=== PATIENT | female | born 1975 | race Caucasian/White ===

== ENCOUNTER → 2016-09-24 | Outpatient (CLI) | payer BC, OTHER | END | disposition home or self-care (01) | LOC: LABWHC1 14:09 | PROVIDERS: ATTEND Internal Medicine | DX: R76.0 Raised antibody titer (principal) | CPT/HCPCS: 36415; 86225 ==

== ENCOUNTER → 2017-02-21 | Outpatient (CLI) | payer BC ==
[2017-02-22 07:51] LABS: ANA w/Reflex to Titer POSITIVE (NEGATIVE)
== END | disposition home or self-care (01) ==
LOC: LABWHC1 08:39
PROVIDERS: ATTEND Psychiatry & Neurology Pain Medicine
DX: M25.50 Pain in unspecified joint (principal)
CPT/HCPCS: 36415; 86038; 86039; 86235

== ENCOUNTER → 2017-03-14 | Outpatient (CLI) | payer BC ==
[2017-03-14 14:47] LABS: % Iron Saturation 46.3 % (20-50)
--- NOTE | 2017-03-14 23:25 | MR ---
EXAMINATION TYPE: MR brain wo/w con DATE OF EXAM: 03/14/2017 COMPARISON: NONE HISTORY: Dizzy, Lightheaded, R/O MS TECHNIQUE: Multiplanar, multisequence images of the brain and brainstem is performed without and with IV contras t, utilizing 20 mL intravenous MultiHance . FINDINGS: Ventricles and sulci appear normal. There is no mass effect nor midline shift. There is no sign of intracranial hemorrhage. Bray and white matter structures have fairly normal signal pattern. There is no evidence of cerebral edema. The brainstem is intact. Sella turcica is within normal limit s. Corpus callosum is within normal limits. There is a single 4 mm focus of increased signal in the l eft centrum semiovale on the FLAIR images. There are small linear areas of increased signal around th e frontal horns of lateral ventricles and the occipital horn left lateral ventricle. I see no patholo gic enhancement. IMPRESSION: There is a single small focus of increased signal in the left centrum semiovale on the T2 images there is nonspecific. There is mild linear increased signal around the occipital horn left la teral ventricle on the T2 images. There is very minimal subependymal wall white matter increased sign al around the frontal horns of the lateral ventricles. I do not see corpus callosum involvement to block ggest typical demyelinating disease. The possibility of early demyelinating disease cannot be entirel y excluded.
[2017-03-15 14:23] LABS: Immunoglobulin G 846 mg/dL (700 - 1600)
== END ==
LOC: RADMRIMAIN 13:19
PROVIDERS: ATTEND Psychiatry & Neurology Pain Medicine
DX: R90.89 Other abnormal findings on diagnostic imaging of central nervous system (principal); D64.9 Anemia, unspecified; R51 Headache
CPT/HCPCS: 82040; 82042; 82784; 83916; 82728; 83540; 83550; 83873; 84466; 70553; 36415; A9577

== ENCOUNTER 2017-03-18 19:31 | Emergency (ER) | payer BC ==
[2017-03-18] MEDS ORDERED: diphenhydrAMINE 50 MG/ML 1 ML VIAL IVP STA (19:57)
[2017-03-18] MEDS ORDERED: SODIUM CHLORIDE 0.9% 1,000 ML IV ONE (19:57)
[2017-03-18] MEDS ORDERED: METOCLOPRAMIDE 5 MG/ML 2 ML VIAL IVP STA (19:57)
--- NOTE | 2017-03-18 20:02 | ED ---
Headache HPI - General Chief Complaint: Headache Stated Complaint: Headache x 4 Time Seen by Provider: 03/18/17 19:48 Mode of arrival: ambulatory Limitations: no limitations - History of Present Illness Initial Comments: This is a 42-year-old female who presents here department for headache for the last 4 days. She states that she had an LP done 5 days ago. She developed a headache the day after. She states that the headache is worth with sitting up and standing and better with laying down. She states that she is able to sleep at night. She has been trying [id number] medications and drinking a lot of Coke for the caffeine. She's also been drinking a lot of water. She called Dr. Luo's office who encouraged her to continue with these therapies however if it worsens she was told to come emergency department. She denies any double vision. She does admit to some nausea but no vomiting. No focal weakness or numbness. No other complaints. - Related Data Home Medications Medication Instructions Recorded Confirmed Omeprazole 40 mg PO QAM 06/22/15 03/18/17 Meclizine [Antivert] 25 mg PO DAILY PRN 03/18/17 03/18/17 rOPINIRole HCL [Requip] 0.25 mg PO HS 03/18/17 03/18/17 Previous Rx's Medication Instructions Recorded HYDROcodone/APAP 5-325MG [[facility] 1 tab PO Q6HR PRN #15 tab 03/18/17 5-325] Metoclopramide HCl [Reglan] 10 mg PO Q8HR PRN #15 tablet 03/18/17 Allergies Allergy/AdvReac Type Severity Reaction Status Date / Time codeine Allergy Unknown Verified 03/18/17 20:11 Childhood Review of Systems ROS Statement: Those systems with pertinent positive or pertinent negative responses have been documented in the HPI. ROS Other: All systems not noted in ROS Statement are negative. Past Medical History Past Medical History: No Reported History History of Any Multi-Drug Resistant Organisms: MRSA Date of last positivie culture/infection: 07/17/14 MDRO Source:: groin skin Past Surgical History: Adenoidectomy, Appendectomy, Tonsillectomy, Tubal Ligation Past Psychological History: No Psychological Hx Reported Smoking Status: Never smoker Past Alcohol Use History: None Reported Past Drug Use History: None Reported General Exam - General Exam Comments Initial Comments: Constitutional: Awake alert Appears comfortable Head: Normocephalic atraumatic Eyes: no conjunctival injection No scleral icterus EOMI, pupils are 3 mm and reactive bilaterally Neck: No JVD Supple Heart: Regular rate rhythm normal S1-S2 no murmurs Lungs: Clear to auscultation bilaterally No wheezing No rales Abdomen: Soft nondistended nontender Extremities: Non edematous DP pulses intact Radial pulses intact Neuro: A&Ox3, cranial nerves II through XII are grossly intact, 5 out of 5 strength in upper and lower extremities bilaterally, sensation intact to light touch in all extremities, no dysmetria in upper and lower extremities No focal neurologic deficits Psych: Appropriate mood and affect Limitations: no limitations Course Vital Signs 03/18/17 03/18/17 19:43 21:27 Temperature 98.4 F 98.6 F Pulse Rate 83 88 Respiratory 20 18 Rate Blood Pressure 151/86 161/78 O2 Sat by Pulse 97 96 Oximetry Medical Decision Making - Medical Decision Making This is a 42-year-old female presents emergency department for headache post- LP. Her history and physical are consistent with spinal headache. She was given multiple medications with much improvement in her symptoms. I gave the patient the option for blood patch here in the emergency department however she stated that she would rather go home with pain medication and nausea medication and see if it resolved on its own. I told her that if she does not have complete resolution in the next couple of days she should return emergency Department. She states that she understands. All questions were answered. - Lab Data Result diagrams: 03/18/17 20:30 03/18/17 20:30 Lab Results 03/18/17 03/18/17 03/18/17 Range/Units 20:30 20:30 20:30 WBC 11.4 H (3.8-10.6) k/uL RBC 4.61 (3.80-5.40) m/uL Hgb 14.7 (11.4-16.0) gm/dL Hct 41.8 (34.0-46.0) % MCV 90.6 (80.0-100.0) fL MCH 31.8 (25.0-35.0) pg MCHC 35.1 (31.0-37.0) g/dL RDW 12.8 (11.5-15.5) % Plt Count 224 (150-450) k/uL Neutrophils % 60 % Lymphocytes % 32 % Monocytes % 5 % Eosinophils % 1 % Basophils % 1 % Neutrophils # 6.8 (1.3-7.7) k/uL Lymphocytes # 3.7 (1.0-4.8) k/uL Monocytes # 0.6 (0-1.0) k/uL Eosinophils # 0.1 (0-0.7) k/uL Basophils # 0.1 (0-0.2) k/uL PT 9.6 (9.0-12.0) sec INR 0.9 (<1.1) APTT 23.0 (22.0-30.0) sec Sodium 139 (137-145) mmol/L Potassium 3.9 (3.5-5.1) mmol/L Chloride 106 (98-107) mmol/L Carbon Dioxide 22 (22-30) mmol/L Anion Gap 11 mmol/L BUN 10 (7-17) mg/dL Creatinine 0.80 (0.52-1.04) mg/dL Est GFR (MDRD) Af Amer >60 (>60 ml/min/1.73 sqM) Est GFR (MDRD) Non-Af >60 (>60 ml/min/1.73 sqM) Glucose 112 H (74-99) mg/dL Calcium 9.3 (8.4-10.2) mg/dL Disposition Clinical Impression: Spinal headache Disposition: HOME SELF-CARE Condition: Stable Instructions: Lumbar Puncture (ED), Acute Headache (ED) Prescriptions: HYDROcodone/APAP 5-325MG [[facility] 5-325] 1 tab PO Q6HR PRN #15 tab PRN Reason: Pain Metoclopramide HCl [Reglan] 10 mg PO Q8HR PRN #15 tablet PRN Reason: Nausea Referrals: Elma Azul MD [Primary Care Provider] - 1-2 days
[2017-03-18 20:48] LABS: Basophils # (A) 0.1 k/uL (0-0.2); Basophils % (A) 1 %; CH 32.3; CHCM 35.9; Eosinophils # (A) 0.1 k/uL (0-0.7); Eosinophils % (A) 1 %; HCT 41.8 % (34.0-46.0); HDW 2.41; HGB 14.7 gm/dL (11.4-16.0); Luc # (Auto) 0.17; Luc % (Auto) 2; Lymphocytes # (A) 3.7 k/uL (1.0-4.8); Lymphocytes % (A) 32 %; MCH 31.8 pg (25.0-35.0); MCHC 35.1 g/dL (31.0-37.0); MCV 90.6 fL (80.0-100.0); Mean Platelet Volume 7.2; Monocytes # (A) 0.6 k/uL (0-1.0); Monocytes % (A) 5 %; Neutrophils # (A) 6.8 k/uL (1.3-7.7); Neutrophils % (A) 60 %; RBC 4.61 m/uL (3.80-5.40); RDW 12.8 % (11.5-15.5); WBC 11.4 k/uL (3.8-10.6); WBC (Perox) 10.64
[2017-03-18 20:57] LABS: Anion Gap 11 mmol/L; Blood Urea Nitrogen 10 mg/dL (7-17); Calcium 9.3 mg/dL (8.4-10.2); Carbon Dioxide 22 mmol/L (22-30); Chloride 106 mmol/L (98-107); Glucose 112 mg/dL (74-99); Non-African American GFR(MDRD) >60 (>60 ml/min/1.73 sqM); Potassium 3.9 mmol/L (3.5-5.1); Sodium 139 mmol/L (137-145)
[2017-03-18 20:59] LABS: INR 0.9 (<1.1); Prothrombin Time 9.6 sec (9.0-12.0)
[2017-03-18] MEDS ORDERED: MORPHINE SULFATE 4 MG/ML SYRINGE IVP STA (21:03)
[2017-03-18] MEDS ORDERED: SUMAtriptan SUCCINATE 6 MG/0.5 ML VIAL SQ STA (21:03)
[2017-03-18 21:28] VITALS: RESP 18
[2017-03-18 21:54] VITALS: BP 158/65; PULSE 72; TEMP 98.3
== END 2017-03-18 21:40 | disposition home or self-care (01) ==
LOC: EC 19:31
DX: G97.1 Other reaction to spinal and lumbar puncture (principal); R11.0 Nausea; Z88.5 Allergy status to narcotic agent; Z79.899 Other long term (current) drug therapy
CPT/HCPCS: 99284; 96374; 96375 ×2; 96361; 96372; 36415; 80048; 85025; 85610; 85730; J3030; J2270; J1200; J2765

== ENCOUNTER 2017-03-19 17:43 | Emergency (ER) | payer BC ==
[2017-03-19] MEDS ORDERED: SODIUM CHLORIDE 0.9% 1,000 ML IV ONE (18:00)
[2017-03-19] MEDS ORDERED: METOCLOPRAMIDE 5 MG/ML 2 ML VIAL IVP STA (18:03)
[2017-03-19] MEDS ORDERED: diphenhydrAMINE 50 MG/ML 1 ML VIAL IVP STA (18:03)
[2017-03-19] MEDS ORDERED: MORPHINE SULFATE 4 MG/ML SYRINGE IVP STA ×2 (18:04→19:41)
--- NOTE | 2017-03-19 18:09 | ED ---
Headache HPI - General Chief Complaint: Headache Stated Complaint: Headache Time Seen by Provider: 03/19/17 17:47 Source: RN notes reviewed Mode of arrival: ambulatory Limitations: no limitations - History of Present Illness Initial Comments: Patient is a 42-year-old female presents to the emergency room for evaluation of headache. Patient states she had a spinal tap done by Dr. Luo on Saturday. Patient states she began having a headache. Patient states headache is worse whenever she sitting up and improves while laying down. Patient states she has a 5 out of 10 headache laying down and a 10 out of 10 headache while sitting up. Patient states she was here last night for the same issue. Patient states she was given medications and offered a blood patch. Patient states she did not want a blood patch at that time and felt better after medications and was discharged home. Patient states that the headache has returned. Patient states she is nauseous but denies vomiting. Patient denies fevers or chills. Patient denies paresthesias, weakness or unilateral weakness. Patient denies any new, changing or worsening symptoms since her visit here yesterday. - Related Data Home Medications Medication Instructions Recorded Confirmed Omeprazole 40 mg PO QAM 06/22/15 03/19/17 Meclizine [Antivert] 25 mg PO DAILY PRN 03/18/17 03/19/17 rOPINIRole HCL [Requip] 0.25 mg PO HS 03/18/17 03/19/17 Previous Rx's Medication Instructions Recorded HYDROcodone/APAP 5-325MG [[place] 1 tab PO Q6HR PRN #15 tab 03/18/17 5-325] Metoclopramide HCl [Reglan] 10 mg PO Q8HR PRN #15 tablet 03/18/17 Allergies Allergy/AdvReac Type Severity Reaction Status Date / Time codeine Allergy Unknown Verified 03/19/17 17:46 Childhood Review of Systems ROS Statement: Those systems with pertinent positive or pertinent negative responses have been documented in the HPI. ROS Other: All systems not noted in ROS Statement are negative. Past Medical History Past Medical History: No Reported History History of Any Multi-Drug Resistant Organisms: MRSA Date of last positivie culture/infection: 07/17/14 MDRO Source:: groin skin Past Surgical History: Adenoidectomy, Appendectomy, Tonsillectomy, Tubal Ligation Past Psychological History: No Psychological Hx Reported Smoking Status: Never smoker Past Alcohol Use History: None Reported Past Drug Use History: None Reported General Exam - General Exam Comments Initial Comments: Laying in exam room, no distress. Limitations: no limitations General appearance: alert, in no apparent distress Head exam: Present: atraumatic, normocephalic, normal inspection Eye exam: Present: normal appearance, PERRL, EOMI Pupils: Present: normal accommodation ENT exam: Present: normal exam Neck exam: Present: normal inspection Respiratory exam: Present: normal lung sounds bilaterally. Absent: respiratory distress Cardiovascular Exam: Present: regular rate, normal rhythm, normal heart sounds Extremities exam: Present: normal inspection Back exam: Present: normal inspection Neurological exam: Present: alert, oriented X3, CN II-XII intact, normal gait Expanded Speech: Present: fluid speech Cranial nerves: EOM's Intact: Normal, Facial Sensation: Normal Sensory exam: Upper Extremity Light Touch: Normal, Lower Extremity Light Touch: Normal Motor strength exam: RUE: 5, LUE: 5, RLE: 5, LLE: 5 Eye Response: (4) open spontaneously Motor Response: (6) obeys commands Verbal Response: (5) oriented Psychiatric exam: Present: normal affect, normal mood Skin exam: Present: warm, dry, intact, normal color. Absent: rash Course Vital Signs 03/19/17 03/19/17 03/19/17 17:44 20:24 21:17 Temperature 97.6 F Pulse Rate 94 87 67 Respiratory 16 18 18 Rate Blood Pressure 172/94 156/94 138/86 O2 Sat by Pulse 96 98 98 Oximetry 03/19/17 03/19/17 03/19/17 22:21 22:37 22:50 Temperature 98.7 F Pulse Rate 84 Respiratory 18 Rate Blood Pressure 166/99 136/70 O2 Sat by Pulse 96 Oximetry Medical Decision Making - Medical Decision Making Patient is a 42-year-old female presents to the emergency room for evaluation of post lumbar puncture headache. Patient given multiple medications with little relief of symptoms. Patient was then given sodium benzoate with caffeine and had significant improvement. Patient would like to be discharged home. Advised patient to follow-up with Dr. Luo. Patient states she understands everything that was discussed with her. Return parameters discussed. Case discussed with Dr. Garces. Disposition Clinical Impression: Spinal headache Disposition: HOME SELF-CARE Condition: Good Instructions: Lumbar Puncture (ED), Acute Headache (ED) Additional Instructions: Drink plenty of water and caffeine. Please follow up with primary care provider or neurologist in 24-48 hours. If any new symptom arises or symptoms worsen, return to ER as soon as possible. Referrals: Elma Azul MD [Primary Care Provider] - 1-2 days Time of Disposition: 22:28
[2017-03-19] MEDS ORDERED: KETOROLAC 30 MG/ML 1 ML VIAL IVP STA (19:40)
[2017-03-19] MEDS ORDERED: PROCHLORPERAZINE 5 MG TAB PO STA (19:41)
[2017-03-19] MEDS ORDERED: DIAZEPAM 5 MG/ML 2 ML SYRINGE IVP STA (19:41)
[2017-03-19] MEDS ORDERED: SODIUM CHLORIDE 0.9% 500 ML IV ONE (19:42)
[2017-03-19 20:25] VITALS: RESP 18
[2017-03-19] MEDS ORDERED: CAFFEINE-SODIUM BENZOATE 500 MG in SODIUM CHLORIDE 0.9% 1,000 ML IV ONE (21:30)
[2017-03-19 22:24] VITALS: PULSE 84
[2017-03-19 22:37] VITALS: BP 136/70
[2017-03-19 22:51] VITALS: TEMP 98.7
== END 2017-03-19 22:50 | disposition home or self-care (01) ==
LOC: EC 17:43
DX: G97.1 Other reaction to spinal and lumbar puncture (principal); Z79.899 Other long term (current) drug therapy; Z88.5 Allergy status to narcotic agent
CPT/HCPCS: 99283; 96365; 96375 ×5; 96376; 96361 ×2; S0183; J2270; J1200; J2765; J3360; J1885

== ENCOUNTER 2017-10-14 09:42 | Emergency (ER) | payer BC, OTHER ==
--- NOTE | 2017-10-14 10:22 | ED ---
Fall HPI - General Chief Complaint: Fall Stated Complaint: fall, head injury Time Seen by Provider: 10/14/17 09:56 Source: patient Mode of arrival: wheelchair Limitations: no limitations - History of Present Illness Initial Comments: This a 42-year-old female presents emergency Department chief complaint of slip and fall. She states she was going to work diarrhea vehicle at work states that she went to get something out of the vehicle and slipped backward. Patient states that she did strike her head but she did not lose consciousness. She denies headache or dizziness at this time. She's had no nausea or vomiting. Patient primarily complains of left low back pain, right elbow pain. She does have an abrasion to her right hand states that her tetanus is up-to- date. She denies any decreased range of motion of her right arm denies any numbness or tingling. Patient denies any other extremity injuries. Patient states that she's had problems with her hip and back in the past she does see a neurologist currently. primary takes ibuprofen for pain relief at home. - Related Data Home Medications Medication Instructions Recorded Confirmed Ethosuximide [Zarontin] 250 mg PO HS 10/14/17 10/14/17 Omeprazole 20 mg PO DAILY 10/14/17 10/14/17 rOPINIRole HCL [Requip] 0.5 mg PO HS 10/14/17 10/14/17 Allergies Allergy/AdvReac Type Severity Reaction Status Date / Time codeine Allergy Unknown Verified 10/14/17 10:08 Childhood Review of Systems ROS Statement: Those systems with pertinent positive or pertinent negative responses have been documented in the HPI. ROS Other: All systems not noted in ROS Statement are negative. Past Medical History Past Medical History: No Reported History History of Any Multi-Drug Resistant Organisms: MRSA Date of last positivie culture/infection: 07/17/14 MDRO Source:: groin skin Past Surgical History: Adenoidectomy, Appendectomy, Tonsillectomy, Tubal Ligation Past Psychological History: No Psychological Hx Reported Smoking Status: Never smoker Past Alcohol Use History: None Reported Past Drug Use History: None Reported General Exam Limitations: no limitations General appearance: alert, in no apparent distress Head exam: Present: atraumatic, normocephalic, normal inspection Eye exam: Present: normal appearance, PERRL, EOMI. Absent: scleral icterus, conjunctival injection, periorbital swelling ENT exam: Present: normal exam, normal oropharynx, mucous membranes moist, TM's normal bilaterally, normal external ear exam Neck exam: Present: normal inspection, full ROM. Absent: tenderness, meningismus, lymphadenopathy Respiratory exam: Present: normal lung sounds bilaterally. Absent: respiratory distress, wheezes, rales, rhonchi, stridor Cardiovascular Exam: Present: regular rate, normal rhythm, normal heart sounds. Absent: systolic murmur, diastolic murmur, rubs, gallop, clicks GI/Abdominal exam: Present: soft, normal bowel sounds. Absent: distended, tenderness, guarding, rebound, rigid Extremities exam: Present: other (Right elbow there is mild tenderness to is no obvious abrasions or swelling, patient does have full range of motion no pain with pronation supination, there is small abrasion to the palm of the right hand neurovascular intact, no active bleeding remaining extremity exam within normal limits.) Back exam: Present: normal inspection, full ROM, tenderness (Tenderness to left low back), paraspinal tenderness. Absent: vertebral tenderness Neurological exam: Present: alert, oriented X3, CN II-XII intact, reflexes normal, other (Finger to nose intact bilaterally without overshooting.). Absent : motor sensory deficit Skin exam: Present: warm, dry, intact, normal color. Absent: rash Course Vital Signs 10/14/17 09:49 Temperature 98.1 F Pulse Rate 84 Respiratory 18 Rate Blood Pressure 147/94 O2 Sat by Pulse 98 Oximetry Medical Decision Making - Medical Decision Making 42-year-old female presented emergency department for a fall. X-rays reviewed no acute fracture. Patient has contusion to her right elbow abrasion to her right hand along with low back contusion. Patient will be discharged at this time advised to follow-up for recheck apply ice 20 minutes at a time. Disposition Clinical Impression: Fall, Contusion of right elbow, Abrasion of right hand, Minor head injury, Back contusion Disposition: HOME SELF-CARE Condition: Stable Instructions: Abrasion (ED), Contusion in Adults (ED) Additional Instructions: Please return to the Emergency Department if symptoms worsen or any other concerns. Referrals: Elma Azul MD [Primary Care Provider] - 1-2 days Time of Disposition: 11:09
--- NOTE | 2017-10-14 10:50 | XR ---
EXAMINATION TYPE: XR elbow complete RT DATE OF EXAM: 10/14/2017 COMPARISON: NONE HISTORY: Slip and fall ice TECHNIQUE: Three-view right elbow FINDINGS: Radius aligns normally with the humerus. Anterior fat pad is normal. No elevation of director of partner marketing ior fat pad is evident. Soft tissues appear unremarkable. Follow-up exams can be performed 7-10 days from acute trauma for continued pain. IMPRESSION: 1. Normal three-view right elbow
[2017-10-14] MEDS ORDERED: IBUPROFEN 600 MG TAB PO STA (10:51)
--- NOTE | 2017-10-14 10:55 | XR ---
Lumbar spine HISTORY: Trauma and pain 3 views of the lumbar spine Correlation to prior exam 06/22/2015 Bone mineralization, lumbar vertebral body height and alignment are maintained. Disc spaces are stabl e. Atherosclerotic vascular calcifications noted within the aorta. IMPRESSION: No fracture or subluxation evident
--- NOTE | 2017-10-14 10:55 | XR ---
EXAMINATION TYPE: XR Hip LT and AP Pelvis DATE OF EXAM: 10/14/2017 COMPARISON: NONE HISTORY: Pain slip and fall on ice TECHNIQUE: AP pelvis is obtained. 2 views of the left hip are obtained. FINDINGS: Joint space appears preserved. The femoral head articulates with the acetabulum. No acute fracture or dislocation is evident. Surgical clips are within the pelvis. Sacroiliac joints and symphysis pubis appear normal. No acute f ractures are evident. Normal bowel gas is present. IMPRESSION: 1. No acute osseous abnormality AP pelvis or left hip.
[2017-10-14] MEDS ORDERED: traMADol 50 MG STARTER PACK 3 TAB BTL PO STA (11:14)
[2017-10-14 12:01] VITALS: BP 122/84; PULSE 78; RESP 20; TEMP 97.5
== END 2017-10-14 12:01 | disposition home or self-care (01) ==
LOC: EC 09:42
DX: S50.01XA Contusion of right elbow, initial encounter (principal); S30.0XXA Contusion of lower back and pelvis, initial encounter; S09.90XA Unspecified injury of head, initial encounter; Z86.14 Personal history of Methicillin resistant Staphylococcus aureus infection; Z79.899 Other long term (current) drug therapy; Z88.5 Allergy status to narcotic agent; W00.0XXA Fall on same level due to ice and snow, initial encounter; Y92.89 Other specified places as the place of occurrence of the external cause; Y99.0 Civilian activity done for income or pay
CPT/HCPCS: 72100; 73502; 99283

== ENCOUNTER → 2017-10-24 | Outpatient (CLI) | payer OTHER ==
--- NOTE | 2017-10-24 13:08 | XR ---
EXAMINATION TYPE: XR elbow complete RT DATE OF EXAM: 10/24/2017 COMPARISON: NONE HISTORY: Pain FINDINGS: Three views of the elbow demonstrate mild anterior displacement of the fat pad. No definite fracture line seen.. The osseous structures are intact. There is no acute fracture or dislocation. IMPRESSION: 1. Findings are suggestive of a slight displacement of the anterior fat pad and small joint effusion. Occult fracture in the differential diagnosis correlate clinically.
== END | disposition home or self-care (01) ==
LOC: RADXRMAIN 12:15
PROVIDERS: ATTEND Emergency Medicine
DX: S50.01XA Contusion of right elbow, initial encounter (principal)

== ENCOUNTER → 2017-11-01 | Outpatient (CLI) | payer BC, OTHER ==
--- NOTE | 2017-11-02 01:15 | MR ---
EXAMINATION TYPE: MR elbow RT wo con DATE OF EXAM: 11/01/2017 COMPARISON: NONE HISTORY: Elbow contusion and pain Standard multiplanar, multisequence MRI departmental protocol Multiplanar, multisequence images of the right elbow were acquired. FINDINGS: The biceps tendon is intact. Triceps tendon is intact. The bony structures have fairly norm al signal pattern without evidence of edema. I see no evidence of fracture. The collateral ligaments of the elbow appear intact. Joint spaces are fairly well-maintained. I do not see any significant pro nt effusion. The muscle bundles appear intact without evidence of edema. Brachialis tendon is intact. IMPRESSION: Negative MR scan of the right elbow. Exam fails to demonstrate any bony abnormality. There is joint f luid that is thought to be within normal limits. No evidence of ligament or tendon tear.
== END | disposition home or self-care (01) ==
LOC: RADMRIMAIN 21:02
PROVIDERS: ATTEND Emergency Medicine
DX: S50.01XD Contusion of right elbow, subsequent encounter (principal)

== ENCOUNTER → 2018-05-01 | Outpatient (CLI) | payer BC ==
--- NOTE | 2018-05-01 23:13 | MR ---
EXAMINATION TYPE: MR shoulder RT wo con DATE OF EXAM: 05/01/2018 COMPARISON: None HISTORY: Right shoulder pain x3 months TECHNIQUE: Multiplanar, multisequence imaging of the right shoulder is performed without contrast. FINDINGS: Subscapularis tendon is intact. Biceps tendon is intact. There is some spurring at the AC joint. Ther e is subacromial joint space narrowing. There is a small degenerative cyst in the greater tuberosity of the humerus. There is some patchy increased signal in the supraspinatus tendon. There is no retrac tion. The glenoid marco appear intact. IMPRESSION: There is increased signal in multiple areas of the supraspinatus tendon consistent with full-thicknes s rotator cuff tear. 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
== END | disposition home or self-care (01) ==
LOC: RADMRIMAIN 21:15
PROVIDERS: ATTEND Internal Medicine
DX: M19.011 Primary osteoarthritis, right shoulder (principal); M25.811 Other specified joint disorders, right shoulder

== ENCOUNTER → 2018-08-05 | Outpatient (CLI) | payer BC ==
--- NOTE | 2018-08-11 09:37 | MM ---
Reason for exam: screening (asymptomatic). Last mammogram was performed 2 years and 1 month ago. Physical Findings: A clinical breast exam by your physician is recommended on an annual basis and results should be correlated with mammographic findings. MG Screening Mammo w CAD Bilateral CC and MLO view(s) were taken. Prior study comparison: July 05, 2016, bilateral MG screening mammo w CAD. The breast tissue is heterogeneously dense. This may lower the sensitivity of mammography. No significant changes when compared with prior studies. ASSESSMENT: Benign, BI-RAD 2 RECOMMENDATION: Routine screening mammogram of both breasts in 1 year.
== END | disposition home or self-care (01) ==
LOC: RADMAMWWP 08:23
PROVIDERS: ATTEND Obstetrics & Gynecology
DX: Z12.31 Encounter for screening mammogram for malignant neoplasm of breast (principal)
CPT/HCPCS: 77067

== ENCOUNTER → 2018-10-31 | Outpatient (CLI) | payer BC | LOC: LABWHC1 17:03 | PROVIDERS: ATTEND Internal Medicine Endocrinology, Diabetes & Metabolism | DX: E55.9 Vitamin D deficiency, unspecified (principal); E03.8 Other specified hypothyroidism | CPT/HCPCS: 36415; 82306; 84443 ==

== ENCOUNTER → 2018-12-15 | Outpatient (CLI) | payer BC ==
[2018-12-15 23:39] LABS: Vitamin D 25 Hydroxy 42.5 ng/mL (30.0-100.0)
== END | disposition home or self-care (01) ==
LOC: LABWHC1 17:11
PROVIDERS: ATTEND Internal Medicine Endocrinology, Diabetes & Metabolism
DX: E03.8 Other specified hypothyroidism (principal); E55.9 Vitamin D deficiency, unspecified; R53.83 Other fatigue
CPT/HCPCS: 36415; 82306; 82607; 84443

== ENCOUNTER → 2018-12-24 | Outpatient (CLI) | payer BC ==
[2018-12-24 08:51] LABS: Basophils # (A) 0.1 k/uL (0-0.2); Basophils % (A) 1 %; Eosinophils # (A) 0.2 k/uL (0-0.7); Eosinophils % (A) 3 %; HCT 43.6 % (34.0-46.0); HGB 14.7 gm/dL (11.4-16.0); Lymphocytes # (A) 2.1 k/uL (1.0-4.8); Lymphocytes % (A) 38 %; MCHC 33.6 g/dL (31.0-37.0); MCV 89.3 fL (80.0-100.0); Mean Platelet Volume 6.7; Monocytes # (A) 0.4 k/uL (0-1.0); Monocytes % (A) 7 %; Neutrophils # (A) 2.7 k/uL (1.3-7.7); Neutrophils % (A) 48 %; Platelet Count 240 k/uL (150-450); RBC 4.88 m/uL (3.80-5.40); RDW 12.4 % (11.5-15.5); WBC 5.5 k/uL (3.8-10.6)
[2018-12-24 09:12] LABS: Potassium 4.2 mmol/L (3.5-5.1)
== END ==
LOC: LABPAT 07:54
PROVIDERS: ATTEND Orthopaedic Surgery
DX: Z01.812 Encounter for preprocedural laboratory examination (principal); M75.41 Impingement syndrome of right shoulder
CPT/HCPCS: 36415; 80051; 81025; 85025

== ENCOUNTER 2018-12-26 08:25 | Day surgery (SDC) | payer BC ==
[2018-12-24 12:58] VITALS: BMI 32.1
--- NOTE | 2018-12-25 10:49 | HP ---
HISTORY AND PHYSICAL CHIEF COMPLAINT: Right shoulder pain. 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 She is having pain with attempted overhead use and at night. She has tried anti-inflammatories along with therapy with minimal relief. She notes significant pain and limitation because of this. PAST MEDICAL HISTORY: Significant for depression. CURRENT ALLERGIES: Zoloft. She notes allergies to CODEINE. FAMILY HISTORY: Negative. SOCIAL HISTORY: Negative for current tobacco or alcohol use. REVIEW OF SYSTEMS: Sixteen point review of systems otherwise reviewed and is noncontributory. PHYSICAL EXAMINATION: On examination, the patient is approximately 5 foot 5, 192 pounds of endomorphic habitus. HEENT exam is nonfocal. Neck is supple. On examination of her right shoulder, she is tender about the anterior subacromial space. She has moderate subacromial crepitus. Active range of motion, forward elevation 100 degrees, external rotation with the arm side 30 degrees, internal rotation to L2. Passively, I am able to forward elevate her to 135 degrees. Motor strength is 5-/5 for external rotation, 5/5 for abduction. Impingement test, Neer test, and Speed tests are positive. Her distal neurovascular exam otherwise appears intact in the right upper extremity. X-rays to include AP and scapular outlet views of the right shoulder obtained in the office show a type 2 acromion. The humeral head to acromial distance appears maintained. There is significant acromioclavicular joint arthritis. MRI report 05/01/2018, right shoulder shows a possible full-thickness tear involving the supraspinatus tendon. IMPRESSION: 1. Right shoulder impingement with possible rotator cuff tear. 2. Right acromioclavicular joint arthritis/synovitis. RECOMMENDATIONS: I talked to the patient at length regarding her condition and treatment options. She remains quite symptomatic despite a period of rest, anti-inflammatories, and therapy. After thorough discussion, she opts to proceed with surgery. Will plan to proceed with arthroscopic evaluation with probable subacromial decompression, possible rotator cuff debridement versus repair and possible distal clavicular resection. We will likely perform that as an outpatient procedure. Risks and benefits were discussed at length in layman's terms. MMODL / IJN: [id number] /
[~2018-12-26 08:25] MED LIST: DEXAMETHASONE SOD PHOSPHATE 10 MG/ML 1 ML VIAL IV ONE; LACTATED RINGERS 1,000 ML IV SCH; MIDAZOLAM (PF) 2 MG/2 ML VIAL IV PRN; ONDANSETRON 4 MG/2 ML VIAL IVP ONE; SCOPOLAMINE 1.5MG/72HR PATCH TRANSDERM ONE; ceFAZolin IN SWFI 2 GM/20 ML SYRINGE IVP ONE; fentaNYL (PF) 50 MCG/ML 2 ML AMP IV PRN
[2018-12-26] MEDS ORDERED: LACTATED RINGERS 1,000 ML IV ONE ×3 (08:55→11:27)
[2018-12-26] MEDS ORDERED: LIDOCAINE 1% 20 ML VIAL (10MG/ML) FOR IV START INTRADERMA ONE (08:55)
[2018-12-26] MEDS ORDERED: MIDAZOLAM 2 MG/2 ML VIAL IVP ONE (09:23)
[2018-12-26] MEDS ORDERED: fentaNYL (PF) 50 MCG/ML 2 ML AMP IVP ONE (09:23)
--- NOTE | 2018-12-26 09:38 | P.ONQ ---
Anesthesiology Proc Note - PNB - Peripheral Nerve Block Performed Right Interscalene Single Time Out Performed: Yes (921) Procedure Start Time: Procedure Stop Time: Indication: Acute Post-Operative Pain, Dx/Pain Location (Right Shoulder Pain), Requested by physician Sedation Type: Sedate with meaningful contact maintained Preparation: Sterile Prep Position: Supine Catheter: None Needle Types: On-Q Needle Size: 50mm (2") Needle Gauge: 21 Technique: Ultrasound Injectate: 0.5% Ropivacaine (see comment for volume) (20ml with 4mg Dexamethasone) Blood Aspirated: No Pain Paresthesia on Injection Noted: No Resistance on Injection: Normal Events: Uneventful and Well Tolerated
[2018-12-26] MEDS ORDERED: LIDOCAINE 1% INJ 10MG/ML (20 ML MDV) ONE (09:45)
[2018-12-26] MEDS ORDERED: ROPIVACAINE 5 MG/ML 30 ML VIAL ONE (09:45)
[2018-12-26] MEDS ORDERED: GLYCOPYRROLATE 0.2 MG/ML 2 ML VIAL ONE (09:45)
[2018-12-26] MEDS ORDERED: PROPOFOL 10 MG/ML 20 ML VIAL IV ONE (09:45)
[2018-12-26] MEDS ORDERED: ROCURONIUM BROMIDE 10 MG/ML 10 ML VIAL IV ONE (09:45)
[2018-12-26] MEDS ORDERED: MIDAZOLAM 2 MG/2 ML VIAL ONE (09:45)
[2018-12-26] MEDS ORDERED: NEOSTIGMINE 1 MG/ML 10 ML VIAL ONE (09:45)
[2018-12-26] MEDS ORDERED: SUCCINYLCHOLINE CHLORIDE 100 MG/5 ML SYR IV ONE (09:45)
[2018-12-26] MEDS ORDERED: fentaNYL (PF) 50 MCG/ML 2 ML AMP ONE (09:45)
[2018-12-26] MEDS ORDERED: EPINEPHrine (PF) 1 ML in SODIUM CHLORIDE 0.9% IRRIGATIO 3,000 ML IRRIGATION ONE ×8 (10:29)
--- NOTE | 2018-12-26 11:13 | P.OP ---
Date of Procedure: 12/26/18 Preoperative Diagnosis: Right shoulder impingement/partial thickness rotator cuff tear/acromioclavicular joint synovitis Postoperative Diagnosis: Same Procedure(s) Performed: Right shoulder arthroscopic subacromial decompression/rotator cuff debridement/distal clavicular resection. Anesthesia: jone CLAYTON Surgeon: Jay Hawley Crystallographer #1: Austyn Bains Estimated Blood Loss (ml): 10 Pathology: none sent Condition: stable Disposition: PACU Indications for Procedure: The patient's a 43-year-old female who presents with progressive right shoulder pain after an injury approximately a year ago despite conservative measures. A discussion of the risks and benefits of operative intervention versus continued conservative measures was made with patient. She opted to proceed with surgery. Operative risks to include infection, neurovascular injury, development of blood clots, possible incomplete resolution of symptoms, possible worsening symptoms and need for subsequent procedures was discussed. Informed consent was obtained. Operative Findings: As below Description of Procedure: The patient was brought to the operating room, and after induction of general anesthesia was placed in a beachchair position. A preoperative interscalene block was placed for postoperative analgesia. I examined the right shoulder. There was no gross block to passive motion or gross glenohumeral instability. The right upper extremity was prepped and draped in normal fashion. The bony outlines the acromion, distal clavicle, and coracoid process were outlined with a skin marker. The glenohumeral joint was inflated with 50 mL of saline utilizing a spinal needle from posterior approach. A posterior portal was made through a 5 mm skin incision 1 cm medial and inferior to the posterior lateral border time. A blunt trocar was used to easily into the joint. Diagnostic arthroscopy was performed. An anterior portal was made just lateral to the coracoid process entering the joint above the subscapularis tendon. The subscapularis tendon appeared to be intact. Anterior labrum was intact. The inferior recess was inspected. The posterior labrum was intact. The biceps and its anchor were intact. On inspection the rotator cuff a partial thickness tear involving the supraspinatus was noted involving approximately 2-3 mm of the thickness. This was debrided back to stable base with a motorized shaver. The posterior portion the cuff appeared intact. The arthroscope was placed into the subacromial space. The soft tissue on the undersurface of the acromion was debrided with a motorized shaver and electrocautery clearly defining the anterior medial and lateral borders as well as the distal clavicle. An anterior inferior acromioplasty was performed with a motorized espinoza starting a nterolateral, then extending this posteriorly, then extending this medially. I converted to a flat acromion and this was verified in the posterior and lateral viewing portals. The distal clavicle was clearly visualized. The distal 5 mm was resected utilizing a motorized espinoza. I felt this was adequate resection. The portals were closed with simple 3-0 nylon sutures. A sterile dressing was applied in addition to a sling. The patient was then awoken from general anesthesia and transferred to recovery room in good condition. Blood loss was estimated at 10 mL. No complications were incurred. Sponge and needle counts were correct in the case. Shaun CAMPBELL assisted and the major components of the case to include arm positioning.
[2018-12-26 11:19] VITALS: TEMP 97.5
[2018-12-26] MEDS ORDERED: ONDANSETRON 4 MG/2 ML VIAL IVP ONE (12:11)
[2018-12-26 12:17] VITALS: RESP 16
[2018-12-26 13:11] VITALS: BP 133/84; PULSE 80
== END 2018-12-26 13:32 | disposition home or self-care (01) ==
LOC: OR 08:25
PROVIDERS: ATTEND Orthopaedic Surgery
DX: M75.111 Incomplete rotator cuff tear or rupture of right shoulder, not specified as traumatic (principal); M25.811 Other specified joint disorders, right shoulder; M65.811 Other synovitis and tenosynovitis, right shoulder; E07.9 Disorder of thyroid, unspecified; K21.9 Gastro-esophageal reflux disease without esophagitis; F32.9 Major depressive disorder, single episode, unspecified; Z79.890 Hormone replacement therapy; Z79.899 Other long term (current) drug therapy; Z88.5 Allergy status to narcotic agent
CPT/HCPCS: 64415; 81025; 29824; 29826; J2250; J1100; J2710; J2405; J0171; J2001; J3010; J2795; J0330; J2704; J0690

== ENCOUNTER → 2019-03-05 | Outpatient (CLI) | payer BC ==
--- NOTE | 2019-03-06 09:41 | CT ---
CT brain w con HISTORY: Headache and blurred vision Helical acquisition through the brain dynamic administration 100 cc Isovue-300. Automated exposure control for dose reduction. DLP 1090.4 mGycm There is a low-attenuation focus at the level of the tectum measuring approximately 8 mm x 9 mm in th e midline which shows fat attenuation Hounsfield measurement. There is no enhancement or associated s oft tissue component. The pineal gland shows calcification. There is no hemorrhage or hydrocephalus. Orbits show symmetric appearance. Corpus callosum, pituitary, cervical medullary junction, cerebellop ontine angles are unremarkable. 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
== END | disposition home or self-care (01) ==
LOC: RADCTMAIN 17:39
PROVIDERS: ATTEND Internal Medicine
DX: R51 Headache (principal); H53.8 Other visual disturbances; Z88.5 Allergy status to narcotic agent
CPT/HCPCS: 70460; Q9967

== ENCOUNTER → 2019-03-21 | Outpatient (CLI) | payer BC ==
[2019-03-23 11:51] LABS: Cyclic Citrull Pep IgG Unit <0.5 U/mL; Cyclic Citrullinated Pep IgG NEGATIVE (NEGATIVE); DNA Double-Stranded POSITIVE (NEGATIVE); RNP <0.2 AI; Scleroderma SC-70 Ab <0.2 AI
== END | disposition home or self-care (01) ==
LOC: LABWHC1 11:30
PROVIDERS: ATTEND Psychiatry & Neurology Pain Medicine
DX: M25.50 Pain in unspecified joint (principal)
CPT/HCPCS: 36415; 83516; 86038; 86039; 86200; 86225; 86235

== ENCOUNTER → 2019-04-11 | Outpatient (CLI) | payer BC | END | disposition home or self-care (01) | LOC: LABWHC1 10:19 | PROVIDERS: ATTEND Internal Medicine Endocrinology, Diabetes & Metabolism | DX: E03.8 Other specified hypothyroidism (principal); E55.9 Vitamin D deficiency, unspecified | CPT/HCPCS: 36415; 82306; 84443 ==

== ENCOUNTER → 2019-12-04 | Outpatient (CLI) | payer BC ==
[2019-12-04 12:51] LABS: Basophils # (A) 0.1 k/uL (0-0.2); Basophils % (A) 1 %; Eosinophils # (A) 0.2 k/uL (0-0.7); Eosinophils % (A) 2 %; HCT 44.8 % (34.0-46.0); HGB 15.4 gm/dL (11.4-16.0); Lymphocytes # (A) 2.6 k/uL (1.0-4.8); Lymphocytes % (A) 25 %; MCH 31.7 pg (25.0-35.0); MCHC 34.5 g/dL (31.0-37.0); Mean Platelet Volume 8.8; Monocytes # (A) 0.7 k/uL (0-1.0); Monocytes % (A) 6 %; Neutrophils # (A) 6.8 k/uL (1.3-7.7); Neutrophils % (A) 65 %; Platelet Count 232 k/uL (150-450); RBC 4.87 m/uL (3.80-5.40); RDW 11.5 % (11.5-15.5); WBC 10.5 k/uL (3.8-10.6)
[2019-12-04 19:08] LABS: African American GFR (CKD) 103.2 (60.0-200.0); Albumin 4.4 g/dL (3.80-4.90); Albumin/Globulin Ratio 2.1 (1.60-3.17); Anion Gap 9.7 mmol/L (4.00-12.00); Calcium 9.1 mg/dL (8.7-10.3); Carbon Dioxide 24.3 mmol/L (21.6-31.8); Globulin 2.1 g/dL (1.6-3.3); Potassium 4.2 mmol/L (3.5-5.5); Total Bilirubin 0.6 mg/dL (0.3-1.2); Total Protein 6.5 g/dL (6.2-8.2)
== END | disposition home or self-care (01) ==
LOC: LABWHC1 11:20
PROVIDERS: ATTEND Psychiatry & Neurology Pain Medicine
DX: Z51.81 Encounter for therapeutic drug level monitoring (principal); Z79.899 Other long term (current) drug therapy
CPT/HCPCS: 36415; 80053; 85025